=== PATIENT | male | born 1970 | race African-American/Black ===

== ENCOUNTER 2023-12-14 06:27 | Day surgery (SDC) | payer OTHER, SELFPAY ==
[2023-12-05 14:00] VITALS: BMI 22.9
[2023-12-14] VITALS (9 sets, daily range): BP systolic 106–144; BP diastolic 60–84; BMI 24.2
[2023-12-14] MEDS: NORMOSOL-R 1000 IV (08:36)
[2023-12-14] MEDS: TYLENOL 1000 MG PO (08:37)
--- NOTE | 2023-12-14 10:53 | SUR.OPER ---
PATIENT SUPINE, LEFT ARM SECURED ON PADDED ARM BOARD, RIGHT ARM TUCKED AT SIDE
== END 2023-12-14 12:39 | disposition home or self-care (01) ==
LOC: SDS 06:27
PROVIDERS: ATTENDING PHYSICIAN Otolaryngology; FAMILY PHYSICIAN Internal Medicine
DX: J34.2 Deviated nasal septum (principal); J34.3 Hypertrophy of nasal turbinates; J34.89 Other specified disorders of nose and nasal sinuses
CPT/HCPCS: 30520; 30140; 93005